=== PATIENT | female | born 1970 | race Two or more races ===

== ENCOUNTER 2017-04-22 15:05 | Emergency (ER) | payer BC ==
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
== END 2017-04-22 18:20 | disposition home or self-care (01) ==
LOC: CED 15:05 → CFTX 15:05
DX: S29.012A Strain of muscle and tendon of back wall of thorax, initial encounter (principal); S16.1XXA Strain of muscle, fascia and tendon at neck level, initial encounter; S40.011A Contusion of right shoulder, initial encounter; S20.211A Contusion of right front wall of thorax, initial encounter; V43.62XA Car passenger injured in collision with other type car in traffic accident, initial encounter; Y92.410 Unspecified street and highway as the place of occurrence of the external cause
CPT/HCPCS: 71020; 72040; 72072; 73030; 73060; 96372; 99284; J1885